=== PATIENT | male | born 1965 | race Caucasian/White ===

== ENCOUNTER 2018-01-28 18:38 | Emergency (ER) | payer OTHER ==
[2018-01-28 19:44] VITALS: BP 126/73
[2018-01-28] MEDS ORDERED: DIAZEPAM INJ 10 MG/2 ML DISP.SYRIN IM ONE (20:38)
--- NOTE | 2018-01-28 20:41 | ER Document Report ---
HPI - HPI Patient complains to provider of: Lower back pain Pain Level: 5 Context: Patient is a 52 year old male that comes to the emergency department for chief complaint of lower back pain. He states that 3 weeks ago he was bent over pushing a lawnmower and he felt a sharp pain and he had severe pain for several days which then resolved almost completely until yesterday he was trying to get off of the couch and twisted and felt a sharp pain again and today he has had worst pain with pain radiating down his right leg intermittently in the back. He denies loss of bowel or bladder function, numbness, fever, history of IV drug abuse, weight loss, or any daily medications or no medical problems. is with him at bedside. Patient states he already had an MRI performed about 1 week ago but he does not have the results of these back yet. Past Medical History - General Information source: Patient - Social History Smoking Status: Never Smoker Frequency of alcohol use: None Drug Abuse: None Lives with: Family Family History: Reviewed & Not Pertinent - Medical History Medical History: Negative Surgical Hx: Negative - Immunizations Immunizations up to date: Yes Hx Diphtheria, Pertussis, Tetanus Vaccination: Yes Vertical Provider Document - CONSTITUTIONAL General Appearance: WD/WN, No Apparent Distress - Patient moves with a lot of discomfort but otherwise he is not in any distress when he is holding still - INFECTION CONTROL TRAVEL OUTSIDE OF THE [place] IN LAST 30 DAYS: No - HEENT HEENT: Atraumatic, Normal ENT Exam, Normocephalic - NECK Neck: Normal Inspection - RESPIRATORY Respiratory: Breath Sounds Normal, No Respiratory Distress - CARDIOVASCULAR Cardiovascular: Regular Rate, Regular Rhythm - GI/ABDOMEN Gastrointestinal: Abdomen Soft, Abdomen Non-Tender - BACK Back: negative: Normal Inspection - Tenderness along the right paraspinal musculature in the lumbar area, positive axial loading test with pain in the lower back, positive straight leg raise on the right side. No midline tenderness, no saddle anesthesia, no signs of trauma. Normal upper and lower extremity range of motion, normal strength, normal distal neurovascular exam. Course - Re-evaluation Re-evalutation: Positive axial loading, positive straight leg raise, symptoms and presentation most suggestive of herniated disc with secondary sciatica. No fever, tachycardia, history of IV drug abuse, reported history of immunocompromise condition, or symptoms suggesting cancer. Patient already had an MRI and has close follow-up for this. Providing with medications for suspected condition, he states that he was given naproxen and Flexeril beforehand but these are not helping, giving prednisone and Valium to take instead for a short-term. Discussed recommendations, follow-up, and return precautions. Patient and state understanding and agreement. - Vital Signs Vital signs: Temp Pulse Resp BP Pulse Ox 97.2 F 83 18 126/73 H 99 01/28/18 19:42 01/28/18 19:42 01/28/18 19:42 01/28/18 19:42 01/28/18 19:42 Discharge - Discharge Clinical Impression: Lower back pain Qualifiers: Chronicity: acute Back pain laterality: right Sciatica presence: with sciatica Sciatica laterality: sciatica of right side Qualified Code(s): M54.41 - Lumbago with sciatica, right side Condition: Stable Disposition: HOME, SELF-CARE Additional Instructions: Your symptoms and examination are most consistent with herniated disc and sciatic nerve pain. Take prednisone as prescribed, take Valium as prescribed, apply heat to her lower back, avoid lifting/twisting. Follow-up with your MRI results for additional management. Return if you worsen including developing numbness, loss of normal function of your bowel or bladder, fever, or any other concerning symptoms. Prescriptions: Diazepam [Valium 5 mg Tablet] 1 - 2 tab PO TID PRN #12 tablet PRN Reason: Prednisone [Deltasone 10 mg Tablet] 10 mg PO ASDIR PRN #21 tablet PRN Reason: Forms: Return to Work
== END 2018-01-28 21:07 | disposition home or self-care (01) ==
LOC: ER 18:38
DX: M54.41 Lumbago with sciatica, right side (principal)
CPT/HCPCS: 99283; 96372; J3360